=== PATIENT | female | born 1970 | race Caucasian/White ===

== ENCOUNTER 2018-02-02 08:00 | Day surgery (SDC) | payer MEDICAID ==
[~2018-02-02 08:00] MED LIST: Glycopyrrolate 0.2 MG/ML SDV ONE; Lactated Ringers 1,000 ML IV SCH; Lidocaine 2% 5 ML SDV ONE; Midazolam 1 MG/ML 2 ML SDV ONE; Neostigmine Methylsulfate 1 MG/ML 5 ML Syringe ONE; Ondansetron 4 MG/2 ML SDV ONE; Propofol 200 MG/20 ML SDV ONE; Rocuronium 10 MG/ML 10 ML Syringe ONE; Sodium Chloride 0.9% 10 ML Syringe FLUSH PRN; Sodium Chloride 0.9% 2.5 ML Syringe FLUSH PRN; ceFAZolin 2 GM in Premix Bag 1 BAG IV ONE; fentaNYL 250 MCG/5 ML SDV ONE
[2018-02-02] MEDS: Lactated Ringers 1,000 ML IV SCH ×2 (08:54→16:34)
[2018-02-02] MEDS ORDERED: Methylene Blue 50 MG/10 ML Ampule ONE (09:04)
[2018-02-02] MEDS ORDERED: Bupivacaine 0.25% 10 ML SDV ONE (09:04)
[2018-02-02] MEDS ORDERED: Fluorescein 5 ML Vial ONE (09:05)
--- NOTE | 2018-02-02 09:06 | PCM.PREANE ---
Preanesthetic Assessment - Procedure Proposed Procedure: LAVH with salpingectomy, pooible oopherectomy - Anesthesia/Transfusion/Family Hx Anesthesia History: Prior Anesthesia Without Reaction Transfusion History: No Prior Transfusion(s) - Review of Systems General: No Symptoms, Other (hx EtOH and/drug abuse in past) Pulmonary: Shortness of Breath (s/p pneumothorax in distant past after trauma) Cardiovascular: Other (HTN) Gastrointestinal: Abdominal Pain Neurological: Other (syncope???) Other: Reports: Depression, Anxiety - Physical Assessment NPO Status Date: 02/02/18 NPO Status Time: 00:30 O2 Sat by Pulse Oximetry: 97 Respiratory Rate: 16 Vital Signs: Last Vital Signs Temp 98.2 F 02/02/18 08:25 Pulse 90 02/02/18 08:25 Resp 16 02/02/18 08:25 BP 159/86 H 02/02/18 08:25 Pulse Ox 97 02/02/18 08:25 Height: 5 ft 7.5 in Weight: 213 lb ASA Class: 3 Mental Status: Alert & Oriented x3 Airway Class: Mallampati = 2 Dentition: Reports: Normal Dentition Thyro-Mental Finger Breadths: 3 Mouth Opening Finger Breadths: 3 ROM/Head Extension: Full Lungs: Clear to Auscultation, Normal Respiratory Effort, Decreased Breath Sounds (but equal) Cardiovascular: Regular Rate, Regular Rhythm, No Murmurs - Lab Values: Laboratory Last Values WBC 6.93 K/uL (4.0-11.0) 02/02/18 08:40 RBC 4.51 M/uL (4.30-5.90) 02/02/18 08:40 Hgb 12.6 g/dL (12.0-16.0) 02/02/18 08:40 Hct 38.2 % (36.0-46.0) 02/02/18 08:40 MCV 84.7 fL (80.0-98.0) 02/02/18 08:40 MCH 27.9 pg (27.0-32.0) 02/02/18 08:40 MCHC 33.0 g/dL (31.0-37.0) 02/02/18 08:40 RDW Std Deviation 45.9 fl (28.0-62.0) 02/02/18 08:40 RDW Coeff of Erick 15 % (11.0-15.0) 02/02/18 08:40 Plt Count 262 K/uL (150-400) 02/02/18 08:40 MPV 9.90 fL (7.40-12.00) 02/02/18 08:40 Nucleated RBC % 0.0 /100WBC 02/02/18 08:40 Nucleated RBCs # 0 K/uL 02/02/18 08:40 - Allergies Allergies/Adverse Reactions: Allergies Allergy/AdvReac Type Severity Reaction Status Date / Time No Known Allergies Allergy Verified 01/29/18 07:32 - Blood Blood Available: No Product(s) Available: None - Anesthesia Plan Pre-Op Medication Ordered: None - Acknowledgements Anesthesia Type Planned: General Anesthesia (OET) Pt an Appropriate Candidate for the Planned Anesthesia: Yes Alternatives and Risks of Anesthesia Discussed w Pt/Guardian: Yes Pt/Guardian Understands and Agrees with Anesthesia Plan: Yes PreAnesthesia Questionnaire HEENT History: Reports: Other (See Below) Other HEENT History: wears glasses Cardiovascular History: Reports: Hypertension Respiratory History: Reports: Other (See Below) Other Respiratory History: hx of collapsed lung from trauma, still has lung issues, some SOB Genitourinary History: Reports: UTI, Recurrent [employer]NAL [employer] VET[employer]INARY TECHNICIAN History: Reports: Fibroids, Musculoskeletal History: Reports: Back Pain, Chronic, Fracture, Other (See Below ) Other Musculoskeletal History: hx of scoliosis, has one leg shorter than the other, hx of fx clavicle Neurological History: Reports: Concussion, Head Trauma, Other (See Below) Other Neuro History: hx of Neuro-Cardiogenic Syncope Psychiatric History: Reports: Anxiety, Depression Endocrine/Metabolic History: Reports: Obesity/BMI 30+ Hematologic History: Reports: Anemia - Past Surgical History Head Surgeries/Procedures: HEENT Surgical History: Reports: Tonsillectomy Respiratory Surgical History: Reports: Other (See Below) Other Respiratory Surgeries/Procedures: chest tube insertion GI Surgical History: Reports: Cholecystectomy, Other (See Below) Other GI Surgeries/Procedures: laparoscopic drainage of abdominal cysts Female Surgical History: Reports: Tubal Ligation - SUBSTANCE USE Smoking Status *Q: Current Every Day Smoker Tobacco Use Within Last Twelve Months: Cigarettes Recreational Drug Use History: No - HOME MEDS Home Medications: Home Meds Ibuprofen 1 - 2 tab PO ASDIRECTED PRN 01/29/18 [History] Lisinopril/Hydrochlorothiazide [Lisinopril-Hctz 20-25 mg Tab] 1 tab PO DAILY [History] - CURRENT (IN HOUSE) MEDS Current Meds: Current Medications Lactated Ringer's (Ringers, Lactated) 1,000 mls @ 125 mls/hr IV ASDIRECTED TAMIKO Last Admin: 02/02/18 08:54 Dose: 125 mls/hr Lactated Ringer's (Ringers, Lactated) 1,000 mls @ 125 mls/hr IV ASDIRECTED [facility] Sodium Chloride (Saline Flush) 10 ml FLUSH ASDIRECTED PRN PRN Reason: Keep Vein Open Sodium Chloride (Saline Flush) 2.5 ml FLUSH ASDIRECTED PRN PRN Reason: Keep Vein Open Discontinued Medications Fentanyl (Sublimaze) Confirm Administered Dose 250 mcg .ROUTE .STK-MED ONE Stop: 02/02/18 07:05 Glycopyrrolate (Robinul) Confirm Administered Dose 0.4 mg .ROUTE .STK-MED ONE Stop: 02/02/18 07:04 Cefazolin Sodium/Dextrose 2 gm (/ Premix) 50 mls @ 100 mls/hr IV ONETIME ONE Stop: 02/02/18 08:29 Lidocaine (Xylocaine-Mpf 2%) Confirm Administered Dose 5 ml .ROUTE .STK-MED ONE Stop: 02/02/18 07:04 Midazolam HCl (Versed 1 Mg/Ml) Confirm Administered Dose 2 mg .ROUTE .STK-MED ONE Stop: 02/02/18 07:05 Neostigmine Methylsulfate (Neostigmine) Confirm Administered Dose 5 mg .ROUTE .STK-MED ONE Stop: 02/02/18 07:04 Ondansetron HCl (Zofran) Confirm Administered Dose 4 mg .ROUTE .STK-MED ONE Stop: 02/02/18 07:04 Propofol (Diprivan 20 Ml) Confirm Administered Dose 200 mg .ROUTE .STK-MED ONE Stop: 02/02/18 07:05 Rocuronium [place] (Zemuron) Confirm Administered Dose 100 mg .ROUTE .STK-MED ONE Stop: 02/02/18 07:04
[2018-02-02] MEDS ORDERED: ceFAZolin/Dextrose,Iso-Osmotic 2 GM/50 ML Duplex Bag IV ONE (09:39)
[2018-02-02] MEDS ORDERED: Furosemide 40 MG/4 ML VIAL ONE (09:43)
[2018-02-02] MEDS ORDERED: ePHEDrine 50 MG/ML SDV ONE (09:47)
[2018-02-02] MEDS ORDERED: Phenylephrine/Normal Saline 100 MCG/ML 10 ML Syringe ONE (09:51)
[2018-02-02] MEDS ORDERED: fentaNYL 100 MCG/2 ML SDV ONE ×2 (10:07→14:00)
[2018-02-02] MEDS ORDERED: hydrALAZINE 20 MG/ML SDV ONE (10:09)
[2018-02-02] MEDS ORDERED: fentaNYL 100 MCG/2 ML SDV IVPUSH PRN (12:34)
[2018-02-02] MEDS ORDERED: Ketorolac 30 MG/ML SDV IVPUSH PRN (13:01)
[2018-02-02] MEDS ORDERED: Acetaminophen/oxyCODONE 325-5 MG Tab PO PRN ×2 (13:01)
[2018-02-02] MEDS ORDERED: Ketorolac 30 MG/ML SDV IVPUSH ONE (13:01)
[2018-02-02] MEDS ORDERED: Morphine 4 MG/ML Syringe IVPUSH PRN (13:01)
[2018-02-02] MEDS ORDERED: Promethazine 25 MG/ML SDV IM PRN (13:01)
[2018-02-02] MEDS ORDERED: Ondansetron 4 MG/2 ML SDV IVPUSH PRN (13:01)
--- NOTE | 2018-02-02 13:20 | PCM.OPNOTE ---
- General Post-Op/Procedure Note Date of Surgery/Procedure: 02/02/18 Operative Procedure(s): Total laparoscopic hysterectomy, Bilateral salphingectomy , cystoscopy Findings: 12 week sized anteverted fibroid uterus Broad ligament fibroid noted Cystoscopy showed intact bladder and bilateral ureteral jets Pre Op Diagnosis: Abnormal uterine bleeding secondary to fibroid uterus Post-Op Diagnosis: same Anesthesia Technique: General ET Tube Primary Surgeon: Rj Vines Secondary Surgeon: Sissy Maldonado Pathology: Fibroid uterus and tubes Fluid Replacement, Intraop: 2,600 Output, Urine Amount: 150 EBL in mLs: 100 Complications: None Condition: Good
[2018-02-02] MEDS ORDERED: Labetalol 100 MG/20 ML MDV ONE (14:00)
[2018-02-02] MEDS ORDERED: HYDROmorphone 2 MG/ML SDV ONE (14:00)
--- NOTE | 2018-02-02 14:26 | PCM48HPAN ---
Post Anesthesia Note - EVALUATION WITHIN 48HRS OF ANESTHETIC Vital Signs in Normal Range: Yes Patient Participated in Evaluation: Yes Respiratory Function Stable: Yes Airway Patent: Yes Cardiovascular Function Stable: Yes Hydration Status Stable: Yes Pain Control Satisfactory: Yes Nausea and Vomiting Control Satisfactory: Yes Mental Status Recovered: Yes Resp Rate: 16
--- NOTE | 2018-02-02 14:26 | PCM.POSTAN ---
POST ANESTHESIA ASSESSMENT - MENTAL STATUS Mental Status: Alert, Oriented - RESPIRATORY Respiratory Status: Respiratory Rate WNL, Airway Patent, O2 Saturation Stable - CARDIOVASCULAR CV Status: Pulse Rate WNL, Blood Pressure Stable - GASTROINTESTINAL GI Status: No Symptoms - POST OP HYDRATION Hydration Status: Adequate & Stable
[2018-02-02] MEDS: ceFAZolin 2 GM in Premix Bag 1 BAG IV SCH ×2 (16:48→21:15)
[2018-02-02] MEDS: Acetaminophen 1,000 MG in Premix Bag 1 BAG IV SCH (20:47)
[2018-02-02] MEDS: Metoclopramide 10 MG/2 ML SDV IVPUSH SCH (20:48)
[2018-02-03] MEDS: Lactated Ringers 1,000 ML IV SCH (00:49)
[2018-02-03] MEDS: Acetaminophen 1,000 MG in Premix Bag 1 BAG IV SCH ×2 (02:16→07:35)
[2018-02-03] MEDS: Metoclopramide 10 MG/2 ML SDV IVPUSH SCH ×2 (02:16→07:38)
[2018-02-03 05:48] LABS: CHLORIDE,CL 105 mmol/L (98-107); SODIUM,NA 136 mmol/L (136-145)
--- NOTE | 2018-02-03 08:37 | OR ---
SURGEON: MARCUS GARCIA DATE OF PROCEDURE: 02/02/2018 PREOPERATIVE DIAGNOSIS: A 47-year-old P2-0-0-3 with abnormal uterine bleeding and pelvic pain secondary to fibroid uterus. POSTOPERATIVE DIAGNOSIS: A 47-year-old P2-0-0-3 with abnormal uterine bleeding and pelvic pain secondary to fibroid uterus. PROCEDURES PERFORMED: Total laparoscopic hysterectomy, bilateral salpingectomy, and cystoscopy. ANESTHESIA: General. ESTIMATED BLOOD LOSS: 100 mL. INTRAVENOUS FLUIDS: 2600 mL. URINE OUTPUT: 150 mL. FINDINGS: A 12-week size fibroid uterus, anteverted uterus. Normal tubes with evidence of tubal ligation. Normal ovaries. BRIEF HISTORY ABOUT PATIENT: A 47-year-old para 2-0-0-3 who was complaining of low abdominal pain in the ER. She had a CAT scan, which showed fibroid uterus and Spigelian hernia. The patient also complained of abnormal uterine bleeding. She had an endometrial biopsy done, which was normal. She had an ultrasound done that showed uterus of 11 x 7 x 11.5 with multiple fibroids. The patient was given the option for endometrial ablation. She was also given the option for controlling heavy periods with intrauterine device. However, the patient has a definitive management. The patient was explained the risks, benefits, and alternatives, which she understood and she consented to procedure. DESCRIPTION OF PROCEDURE: The patient was taken to the operating room with IV fluids running. Pneumatic compression stockings were applied to the lower extremities. General anesthesia was performed without difficulty. A dorsolithotomy position was obtained with Jelani stirrups. Both arms were tucked in on both sides. An examination under anesthesia showed a 12-week size uterus. The patient was prepared and draped in the usual sterile fashion. A Tracey catheter was inserted. A bivalve speculum was placed to expose the cervix. The anterior lip of the cervix was grasped with Allis clamps. The uterus was then sounded to about 14 cm. An Advincula [employer] Professor was placed into the cervix to the uterus. The tip of the Advincula was inflated. The Occluder balloon was then inflated. Attention was then paid to the abdomen. Marcaine was infiltrated into the supraumbilical fold. A small incision of 5 mm was placed, and the abdomen was entered by direct entry with the fiberoptic trocar. Upon entry into the peritoneal cavity, CO2 gas was then insufflated into the abdomen to a pressure of 15 mmHg. Intraabdominal survey revealed normal-appearing liver, gallbladder, and spleen. There was a bit of adhesion from the peritoneum of the right upper quadrant to the abdomen. The pelvic anatomy was noted above. Then, again, two 5 mm trocars were inserted in the bilateral lower quadrants 2 fingerbreadths medial and anterior to the superior iliac spine. Attention was made particularly on the left side to avoid Spigelian hernia. There was a fat accumulation in the hernia position on the left, but there was no bowel inside it. On entry into the uterus, there was a broad ligament myoma on the left side, which was distal to the anatomy. Attention was placed on the right side, where the ovarian ligament was and dissected off the uterus. Again, a peritoneal flap was also created from the anterior uterus across the broad ligament fibroid, and the round ligament was also transected. Attention was then paid to the left side, where the bladder flap was created. The ovarian ligament was from the uterus, and also, the remaining portion of the left tube was all the way to the cornua. The round ligament was then transected medial to the body of the uterus, and the broad ligament was opened on that side. The peritoneal flap was created and the bladder flap anteriorly and also posteriorly. The clot was identified, and the LigaSure device was used to burn and transect the uterine vessels. The colpotomy incision was begun from the left side at the middle of the colpotomy on the anterior and posterior. Attention was then paid to the left side, where the uterine vessels were identified after skeletonization with Harmonic scalpel. The uterine vessels were then coagulated and cut. The colpotomy was then started from the right side, and then we made a colpotomy incision on the left side. The uterus was then transected from the vagina. Attention was then placed to the vagina where the manipulator bulb was deflated, and cervix was identified. The uterus was removed sequentially to reduce the bulk of the uterus. Then, the uterus was delivered from the vagina. The Helms incision was then made extending from the posterior vagina to the uterosacral to the peritoneum on the right side to the left side. The colpotomy was then closed with 0 Polysorb in a continuous locking fashion. Cystoscopy was performed. The bladder was noted to be intact, and ureteral jet noted. Then, attention was paid to the abdomen. The incision was inspected and noted to be hemostatic. The pressure was reduced to 5 mmHg, and hemostasis was also noted. The laparoscopic incision was then stitched with 4-0 Monocryl. Steri-Strips were placed. All instrument and pad counts were correct x2. The patient was taken to the recovery room in stable condition. MELITA MIRZA /[id number]
--- NOTE | 2018-02-03 09:09 | PCM.SURGPN ---
- General Info Date of Service: 02/03/18 Date of Surgery/Procedure: 02/03/18 POD#: 1 Post-Op Diagnosis: Fibroid uterus Admission Diagnosis/Problem: Hysterectomy Functional Status: Reports: Pain Controlled, Tolerating Diet, Ambulating - Review of Systems General: Reports: No Symptoms HEENT: Reports: No Symptoms Pulmonary: Reports: No Symptoms Cardiovascular: Reports: No Symptoms Gastrointestinal: Reports: No Symptoms Genitourinary: Reports: No Symptoms Musculoskeletal: Reports: No Symptoms Skin: Reports: No Symptoms Neurological: Reports: No Symptoms - Patient Data Vitals - Most Recent: Last Vital Signs Temp 36.8 C 02/03/18 07:43 Pulse 72 02/03/18 07:43 Resp 16 02/03/18 07:43 BP 120/56 L 02/03/18 07:43 Pulse Ox 94 L 02/03/18 07:43 Weight - Most Recent: 96.615 kg I&O - Last 24 Hours: Intake & Output 02/02/18 02/03/18 02/03/18 22:59 06:59 14:59 Intake Total 300 700 Output Total 820 Balance 300 -120 Lab Results Last 24 Hrs: Laboratory Results - last 24 hr 02/02/18 02/02/18 02/03/18 Range/Units 08:40 08:40 04:50 WBC 9.63 (4.0-11.0) K/uL RBC 3.88 L (4.30-5.90) M/uL Hgb 10.7 L (12.0-16.0) g/dL Hct 33.6 L (36.0-46.0) % MCV 86.6 (80.0-98.0) fL MCH 27.6 (27.0-32.0) pg MCHC 31.8 (31.0-37.0) g/dL RDW Std Deviation 48.9 (28.0-62.0) fl RDW Coeff of Erick 16 H (11.0-15.0) % Plt Count 271 (150-400) K/uL MPV 10.10 (7.40-12.00) fL Neut % (Auto) 71.7 (48.0-80.0) % Lymph % (Auto) 18.8 (16.0-40.0) % [place] % (Auto) 8.9 (0.0-15.0) % Eos % (Auto) 0.5 (0.0-7.0) % Baso % (Auto) 0.1 (0.0-1.5) % Neut # (Auto) 6.9 H (1.4-5.7) K/uL Lymph # (Auto) 1.8 (0.6-2.4) K/uL [place] # (Auto) 0.9 H (0.0-0.8) K/uL Eos # (Auto) 0.1 (0.0-0.7) K/uL Baso # (Auto) 0.0 (0.0-0.1) K/uL Nucleated RBC % 0.0 /100WBC Nucleated RBCs # 0 K/uL Sodium (136-145) mmol/L Potassium (3.5-5.1) mmol/L Chloride (98-107) mmol/L Carbon Dioxide (21.0-32.0) mmol/L BUN (7.0-18.0) mg/dL Creatinine (0.6-1.0) mg/dL Est Cr Clr Drug Dosing mL/min Estimated GFR (MDRD) ml/min Glucose (74-106) mg/dL Calcium (8.5-10.1) mg/dL HCG, Qual NEGATIVE (NEG) Blood Type A POSITIVE Antibody Screen NEGATIVE 02/03/18 Range/Units 04:50 WBC (4.0-11.0) K/uL RBC (4.30-5.90) M/uL Hgb (12.0-16.0) g/dL Hct (36.0-46.0) % MCV (80.0-98.0) fL MCH (27.0-32.0) pg MCHC (31.0-37.0) g/dL RDW Std Deviation (28.0-62.0) fl RDW Coeff of Erick (11.0-15.0) % Plt Count (150-400) K/uL MPV (7.40-12.00) fL Neut % (Auto) (48.0-80.0) % Lymph % (Auto) (16.0-40.0) % [place] % (Auto) (0.0-15.0) % Eos % (Auto) (0.0-7.0) % Baso % (Auto) (0.0-1.5) % Neut # (Auto) (1.4-5.7) K/uL Lymph # (Auto) (0.6-2.4) K/uL [place] # (Auto) (0.0-0.8) K/uL Eos # (Auto) (0.0-0.7) K/uL Baso # (Auto) (0.0-0.1) K/uL Nucleated RBC % /100WBC Nucleated RBCs # K/uL Sodium 136 (136-145) mmol/L Potassium 3.6 (3.5-5.1) mmol/L Chloride 105 (98-107) mmol/L Carbon Dioxide 27.1 (21.0-32.0) mmol/L BUN 5 L (7.0-18.0) mg/dL Creatinine 0.7 (0.6-1.0) mg/dL Est Cr Clr Drug Dosing 97.36 mL/min Estimated GFR (MDRD) > 60.0 ml/min Glucose 98 (74-106) mg/dL Calcium 7.5 L (8.5-10.1) mg/dL HCG, Qual (NEG) Blood Type Antibody Screen Med Orders - Current: Current Medications Fentanyl (Sublimaze) 50 mcg IVPUSH Q5M PRN PRN Reason: Pain (severe 7-10) Stop: 02/03/18 12:34 Lactated Ringer's (Ringers, Lactated) 1,000 mls @ 125 mls/hr IV ASDIRECTED [facility] Last Admin: 02/03/18 00:49 Dose: 125 mls/hr Lactated Ringer's (Ringers, Lactated) 1,000 mls @ 125 mls/hr IV [facility]ED [facility] Cefazolin Sodium/Dextrose 2 gm (/ Premix) 50 mls @ 100 mls/hr IV Q6H [facility] Last Admin: 02/02/18 21:15 Dose: 100 mls/hr Ketorolac Tromethamine (Toradol) 30 mg IVPUSH ONETIME ONE Last Admin: 02/02/18 16:26 Dose: Not Given Ketorolac Tromethamine (Toradol) 30 mg IVPUSH Q6H PRN PRN Reason: Pain (severe 7-10) Last Admin: 02/02/18 18:57 Dose: 30 mg Metoclopramide HCl (Reglan) 10 mg IVPUSH Q6H TAMIKO Last Admin: 02/03/18 07:38 Dose: 10 mg Morphine Sulfate (Morphine) 4 mg IVPUSH Q2H PRN PRN Reason: Pain (severe 7-10) Ondansetron HCl (Zofran) 4 mg IVPUSH Q6H PRN PRN Reason: Nausea/Vomiting Last Admin: 02/02/18 18:58 Dose: 4 mg Oxycodone/Acetaminophen (Percocet 325-5 Mg) 1 tab PO Q4H PRN PRN Reason: Pain (moderate 4-6) Last Admin: 02/03/18 00:50 Dose: 1 tab Oxycodone/Acetaminophen (Percocet 325-5 Mg) 2 tab PO Q4H PRN PRN Reason: Pain (moderate 4-6) Last Admin: 02/03/18 06:47 Dose: 2 tab Promethazine HCl (Phenergan) 25 mg IM Q6H PRN PRN Reason: Nausea/Vomiting Sodium Chloride (Saline Flush) 10 ml FLUSH ASDIRECTED PRN PRN Reason: Keep Vein Open Sodium Chloride (Saline Flush) 2.5 ml FLUSH ASDIRECTED PRN PRN Reason: Keep Vein Open Discontinued Medications Bupivacaine HCl (Sensorcaine-Mpf 0.25%) Confirm Administered Dose 10 ml .ROUTE .STK-MED ONE Stop: 02/02/18 09:05 Cefazolin Sodium/Dextrose (Ancef) Confirm Administered Dose 2 gm IV .STK-MED ONE Stop: 02/02/18 09:40 Ephedrine Sulfate (Ephedrine Sulfate) Confirm Administered Dose 50 mg .ROUTE .STK-MED ONE Stop: 02/02/18 09:48 Fentanyl (Sublimaze) Confirm Administered Dose 250 mcg .ROUTE .STK-MED ONE Stop: 02/02/18 07:05 Fentanyl (Sublimaze) Confirm Administered Dose 100 mcg .ROUTE .STK-MED ONE Stop: 02/02/18 10:08 Fentanyl (Sublimaze) Confirm Administered Dose 100 mcg .ROUTE .STK-MED ONE Stop: 02/02/18 14:01 Fluorescein Sodium (Ak-Fluor) Confirm Administered Dose 5 ml .ROUTE .STK-MED ONE Stop: 02/02/18 09:06 Furosemide (Lasix) Confirm Administered Dose 40 mg .ROUTE .STK-MED ONE Stop: 02/02/18 09:44 Glycopyrrolate (Robinul) Confirm Administered Dose 0.4 mg .ROUTE .ST-MED ONE Stop: 02/02/18 07:04 Hydralazine HCl (Apresoline) Confirm Administered Dose 20 mg .ROUTE .STK-MED ONE Stop: 02/02/18 10:10 Hydromorphone HCl (Dilaudid) Confirm Administered Dose 2 mg .ROUTE .ST-MED ONE Stop: 02/02/18 14:01 Cefazolin Sodium/Dextrose 2 gm (/ Premix) 50 mls @ 100 mls/hr IV ONETIME ONE Stop: 02/02/18 08:29 Last Admin: 02/02/18 16:25 Dose: Not Given Acetaminophen 1,000 mg/ Premix 100 mls @ 400 mls/hr IV Q6H TAMIKO Stop: 02/03/18 08:14 Last Admin: 02/03/18 07:35 Dose: 400 mls/hr Labetalol HCl (Normodyne) Confirm Administered Dose 100 mg .ROUTE .[facility]-MED ONE Stop: 02/02/18 14:01 Lidocaine (Xylocaine-Mpf 2%) Confirm Administered Dose 5 ml .ROUTE .ST-MED ONE Stop: 02/02/18 07:04 Methylene Blue (Provayblue) Confirm Administered Dose 50 mg .ROUTE .ST-MED ONE Stop: 02/02/18 09:05 Midazolam HCl (Versed 1 Mg/Ml) Confirm Administered Dose 2 mg .ROUTE .ST-MED ONE Stop: 02/02/18 07:05 Neostigmine Methylsulfate (Neostigmine) Confirm Administered Dose 5 mg .ROUTE .ST-MED ONE Stop: 02/02/18 07:04 Ondansetron HCl (Zofran) Confirm Administered Dose 4 mg .ROUTE .ST-MED ONE Stop: 02/02/18 07:04 Phenylephrine HCl (Phenylephrine In Ns 100 Mcg/Ml) Confirm Administered Dose 1 mg .ROUTE .ST-MED ONE Stop: 02/02/18 09:52 Propofol (Diprivan 20 Ml) Confirm Administered Dose 200 mg .ROUTE .STK-MED ONE Stop: 02/02/18 07:05 Rocuronium [place] (Zemuron) Confirm Administered Dose 100 mg .ROUTE .ST-MED ONE Stop: 02/02/18 07:04 - Exam Wound/Incisions: Dressing Dry and Intact General: Alert HEENT: Pupils Equal Neck: Supple Lungs: Clear to Auscultation, Normal Respiratory Effort Cardiovascular: Regular Rate, Regular Rhythm GI/Abdominal Exam: Normal Bowel Sounds Extremities: Normal Inspection Neurological: No New Focal Deficit - Problem List & Annotations (1) H/O hysterectomy for benign disease SNOMED Code(s): 883852291 Code(s): Z90.710 - ACQUIRED ABSENCE OF BOTH CERVIX AND UTERUS Status: Acute Current Visit: Yes (2) Fibroid SNOMED Code(s): 02561459 Code(s): D25.9 - LEIOMYOMA OF UTERUS, UNSPECIFIED Status: Acute Priority : High Current Visit: Yes - Problem List Review Problem List Initiated/Reviewed/Updated: Yes - My Orders Last 24 Hours: Active Orders 24 hr Category Date Time Status Patient Status [ADT] Routine ADT 02/02/18 13:01 Active Notify Provider Intake and Out [RC] ASDIRECTED Care 02/02/18 13:01 Active Notify Provider Vital Signs [RC] ASDIRECTED Care 02/02/18 13:01 Active RT Incentive Spirometry [RC] Q2HWA Care 02/02/18 13:01 Active Up With Assistance [RC] PER UNIT ROUTINE Care 02/02/18 13:01 Active Up ad Bev [RC] PER UNIT ROUTINE Care 02/02/18 13:01 Active Urinary Catheter Removal [RC] Per Unit Routine Care 02/02/18 13:01 Active Vital Signs [RC] PER UNIT ROUTINE Care 02/02/18 13:01 Active Advance Diet Instructions [DIET] Diet 02/02/18 Dinner Active Acetaminophen/oxyCODONE [Percocet 325-5 MG] Med 02/02/18 13:01 Active 1 tab PO Q4H PRN Acetaminophen/oxyCODONE [Percocet 325-5 MG] Med 02/02/18 13:01 Active 2 tab PO Q4H PRN Ketorolac [Toradol] Med 02/02/18 13:01 Once 30 mg IVPUSH ONETIME ONE Ketorolac [Toradol] Med 02/02/18 13:01 Active 30 mg IVPUSH Q6H PRN Metoclopramide [Reglan] Med 02/02/18 20:00 Active 10 mg IVPUSH Q6H Morphine Med 02/02/18 13:01 Active 4 mg IVPUSH Q2H PRN Ondansetron [Zofran] Med 02/02/18 13:01 Active 4 mg IVPUSH Q6H PRN Promethazine [Phenergan] Med 02/02/18 13:01 Active 25 mg IM Q6H PRN ceFAZolin [Ancef] 2 gm Med 02/02/18 16:00 Active Premix Bag 1 bag IV Q6H fentaNYL [Sublimaze] Med 02/02/18 12:34 Active 50 mcg IVPUSH Q5M PRN Peripheral IV Discontinue [OM.PC] Routine Oth 02/02/18 13:01 Ordered Sequential Compression Device [OM.PC] Per Unit Routine Oth 02/02/18 13:01 Ordered Resuscitation Status Routine Resus Stat 02/02/18 13:01 Ordered Medication Orders Fentanyl (Sublimaze) 50 mcg IVPUSH Q5M PRN PRN Reason: Pain (severe 7-10) Stop: 02/03/18 12:34 Lactated Ringer's (Ringers, Lactated) 1,000 mls @ 125 mls/hr IV ASDIRECTED [facility] Last Admin: 02/03/18 00:49 Dose: 125 mls/hr Infusion: 02/03/18 00:34 Dose: 125 mls/hr Admin: 02/02/18 16:34 Dose: 125 mls/hr Infusion: 02/02/18 16:34 Dose: 125 mls/hr Admin: 02/02/18 08:54 Dose: 125 mls/hr Lactated Ringer's (Ringers, Lactated) 1,000 mls @ 125 mls/hr IV [facility]ED [facility] Cefazolin Sodium/Dextrose 2 gm (/ Premix) 50 mls @ 100 mls/hr IV Q6H [facility] Last Admin: 02/02/18 21:15 Dose: 100 mls/hr Infusion: 02/02/18 17:18 Dose: 100 mls/hr Admin: 02/02/18 16:48 Dose: 100 mls/hr Ketorolac Tromethamine (Toradol) 30 mg IVPUSH ONETIME ONE Last Admin: 02/02/18 16:26 Dose: Not Given Ketorolac Tromethamine (Toradol) 30 mg IVPUSH Q6H PRN PRN Reason: Pain (severe 7-10) Last Admin: 02/02/18 18:57 Dose: 30 mg Metoclopramide HCl (Reglan) 10 mg IVPUSH Q6H [facility] Last Admin: 02/03/18 07:38 Dose: 10 mg Admin: 02/03/18 02:16 Dose: 10 mg Admin: 02/02/18 20:48 Dose: 10 mg Morphine Sulfate (Morphine) 4 mg IVPUSH Q2H PRN PRN Reason: Pain (severe 7-10) Ondansetron HCl (Zofran) 4 mg IVPUSH Q6H PRN PRN Reason: Nausea/Vomiting Last Admin: 02/02/18 18:58 Dose: 4 mg Oxycodone/Acetaminophen (Percocet 325-5 Mg) 1 tab PO Q4H PRN PRN Reason: Pain (moderate 4-6) Last Admin: 02/03/18 00:50 Dose: 1 tab Oxycodone/Acetaminophen (Percocet 325-5 Mg) 2 tab PO Q4H PRN PRN Reason: Pain (moderate 4-6) Last Admin: 02/03/18 06:47 Dose: 2 tab Promethazine HCl (Phenergan) 25 mg IM Q6H PRN PRN Reason: Nausea/Vomiting Sodium Chloride (Saline Flush) 10 ml FLUSH ASDIRECTED PRN PRN Reason: Keep Vein Open Sodium Chloride (Saline Flush) 2.5 ml FLUSH ASDIRECTED PRN PRN Reason: Keep Vein Open - Assessment Assessment (Free Text/Narrative):: 47 yo s/p TLH/BS and cystoscopy for fibroid uterus and pelvic pain , PPD 1 Ambulating lightly , Yet to void , tolerating regular diet She feels drowsy with percocet will decrease to 1 tab She has good pain control otherwise - Plan Plan (Free Text/Narrative):: Discharge home after voiding Pain control Incentive spirometry
== END 2018-02-03 12:30 | disposition home or self-care (01) ==
LOC: MW.SDS 08:00 → MW.MS 08:00 → MW.SDS 02-03 12:30
PROVIDERS: ATTEND Obstetrics & Gynecology
DX: D25.9 Leiomyoma of uterus, unspecified (principal); N87.9 Dysplasia of cervix uteri, unspecified; I10 Essential (primary) hypertension; F17.210 Nicotine dependence, cigarettes, uncomplicated; E66.9 Obesity, unspecified; Z68.32 Body mass index [BMI] 32.0-32.9, adult; F32.9 Major depressive disorder, single episode, unspecified; F41.9 Anxiety disorder, unspecified; Z98.51 Tubal ligation status; Z79.899 Other long term (current) drug therapy
CPT/HCPCS: 36415; 51702; 58571; 80048; 84703; 85025; 85027; 86850; 86900; 86901; 88309; A9270; J0131; J0360; J0690; J1170; J1885; J1940; J2250; J2370; J2405; J2704; J2765; J3010; J3490; J7120; 00840